=== PATIENT | male | born 1940 | race Caucasian/White ===

== ENCOUNTER 2018-10-07 16:27 | Emergency (ER) | payer OTHER ==
[~2018-10-07] VITALS: Ht 177.8 cm; Wt 100.0 kg
[2018-10-07 16:33] VITALS: Ht 177.8 cm; Wt 100.0 kg
[2018-10-07] MEDS ORDERED: COZAAR25 MG PO (16:35)
[2018-10-07 17:24] LABS: EOSINOPHILS 3.9 % (0-7); HEMATOCRIT 40.9 % (42.0-54.0); HEMOGLOBIN 13.7 g/dL (13.5-17.5); IMMATURE GRANULOCYTES 0.3 % (0-5); LYMPHOCYTES 26.7 % (15-50); MCH 32.6 pg (26.0-34.0); MCHC 33.5 g/dL (31.0-37.0); MCV 97.4 fL (80.0-100.0); MEAN PLATELET VOLUME 10.6 fL (7.4-10.4); NEUTROPHILS 59.1 % (40-80); PLATELET COUNT 157 10x3/uL (130-400); RDW 13.1 % (11.5-14.5); WBC 6.7 10x3/uL (4.8-10.8)
[2018-10-07 17:33] LABS: APTT 30.4 SECONDS (22.8-39.4); INR 1.22 (0.85-1.17); PROTIME 14.9 SECONDS (11.6-15.0)
[2018-10-07 17:38] LABS: ALBUMIN 3.2 g/dL (3.4-5.0); ALKALINE PHOSPHATASE 53 U/L (46-116); ALT (SGPT) 21 U/L (10-68); BILIRUBIN - TOTAL 0.36 mg/dL (0.2-1.3); CALC OSMOLALITY 274 mosm/kg (275-300); CALCIUM 8.1 mg/dL (8.5-10.1); CARBON DIOXIDE 21.4 mmol/L (21.0-32.0); CHLORIDE - SERUM 104 mmol/L (98-107); CREATININE - SERUM 1.4 mg/dL (0.6-1.3); GLUCOSE 92 mg/dL (74-106); POTASSIUM - SERUM 4.8 mmol/L (3.5-5.1); PROTEIN - SERUM 6.1 g/dL (6.4-8.2); SODIUM 137 mmol/L (136-145); UREA NITROGEN 16 mg/dL (7-18); eGFR NON AFRICAN AMERICAN 52 mL/min (90-120)
[2018-10-07 17:42] LABS: D-DIMER-QUANTITATIVE 0.27 ug/mLFEU (0.20-0.54)
[2018-10-07 17:48] LABS: CREATINE KINASE 116 UL (21-232); MAGNESIUM - SERUM 1.9 mg/dL (1.8-2.4); THYROID STIMULATING HORMONE 1.94 uIU/mL (0.36-3.74); TROPONIN-I 0.019 ng/mL (0.000-0.060)
[2018-10-07 22:09] VITALS: BP 166/83
== END 2018-10-07 19:25 | disposition home or self-care (01) ==
LOC: D.ER 16:27
PROVIDERS: Family Medicine
DX: I95.1 Orthostatic hypotension (principal); R00.1 Bradycardia, unspecified